=== PATIENT | female | born 1965 | race Two or more races ===

== ENCOUNTER → 2025-08-04 | Outpatient (CLI) | payer BC, SELFPAY ==
--- NOTE | 2025-08-04 09:30 | XR_ITS ---
Examination: Screening digital mammography, bilateral Computer aided detection 3-D breast Tomosynthesis, bilateral Date and time of exam: August 04, 2025, 0841 hours Indication: Screening Technique: Nonmagnified MLO, CC views of the breasts to been obtained, reconstructed from 3-D Tomosynthesis images. R2 computer aided detection program utilized for evaluation of suspicious masses and/or abnormal calcifications. 3-D Tomosynthesis images obtained. Findings: Scattered areas of fibroglandular density. Benign calcifications No suspicious masses Impression: BI-RADS category II: Benign Findings. Recommend 1 year follow-up mammogram.
== END | disposition home or self-care (01) ==
LOC: CDIM 08:28
PROVIDERS: PCP Specialist; Referring Provider Family Medicine; Visit Provider Family Medicine
DX: Z12.31 Encounter for screening mammogram for malignant neoplasm of breast (principal); R92.323 Mammographic fibroglandular density, bilateral breasts; R92.1 Mammographic calcification found on diagnostic imaging of breast
CPT/HCPCS: 77063; 77067

== ENCOUNTER → 2025-08-28 | Outpatient (CLI) | payer BC, SELFPAY ==
--- NOTE | 2025-08-28 12:00 | XR_ITS ---
EXAMINATION: Thyroid sonography TECHNIQUE: Grayscale sonographic images thyroid close Date and time: August 28, 2025, 12:10 p.m. INDICATIONS: History of left thyroidectomy June 28, 2024, right neck pain 1 month, thyroid sonogram December 16, 2017 midpole right thyroid nodule 13 mm lower pole right thyroid nodule 19 mm FINDINGS: Right thyroid 4.6 cm Upper pole nodule 11 x 8 mm Mid: Nodule 8 x 7 mm Lower pole nodule with vascularity 19 x 20 mm Isthmus nodule 21 x 19 mm Left thyroid 4.7 cm Mid: Nodule 7 x 8 mm Lower pole nodule 11 x 8 mm IMPRESSION: Multiple thyroid nodules as above Recommend ultrasound-guided fine-needle aspiration of the lower pole right thyroid nodule and isthmus nodule
== END | disposition home or self-care (01) ==
PROVIDERS: PCP Family Medicine; Referring Provider Family Medicine; Visit Provider Family Medicine
DX: E04.2 Nontoxic multinodular goiter (principal)
CPT/HCPCS: 76536

== ENCOUNTER → 2025-10-16 | Outpatient (CLI) | payer BC, SELFPAY ==
[2025-10-13 15:30] LABS: Basophils # (Auto) 0.0 Thou/mm3 (0.0-0.2); Basophils % (Auto) 1 % (0-2.5); Eosinophils # (Auto) 0.2 Thou/mm3 (0.0-0.5); Eosinophils % (Auto) 4 % (0-10); Hematocrit 40.6 % (36.0-46.0); Hemoglobin 13.4 g/dL (12.0-16.0); Immature Granulocytes Auto 0.01 Thou/mm3 (0.00-0.00); Lymphocytes # (Auto) 1.7 Thou/mm3 (1.0-4.8); Lymphocytes % (Auto) 33 % (10-50); Mean Corpuscular HGB Conc 33.0 g/dl (31.0-37.0); Mean Corpuscular Hemoglobin 26.9 pg (25.0-35.0); Mean Corpuscular Volume 81 fL (80-100); Monocytes # (Auto) 0.3 Thou/mm3 (0.0-0.8); Monocytes % (Auto) 6 % (0-12); Neutrophils # (Auto) 3.0 Thou/mm3 (1.8-7.7); Neutrophils % (Auto) 56 % (37-80); Nucleated Red Blood Cell # 0.00 Thou/mm3 (0.00-0.00); Nucleated Red Blood Cell % 0 /100 WBC (0); Platelet Count 242 Thou/mm3 (140-440); RDW Standard Deviation 39.4 fL (36.4-46.3); Red Blood Count 4.99 Miln/mm3 (4.00-5.20); White Blood Count 5.3 Thou/mm3 (3.6-11.0)
[2025-10-13 15:51] LABS: INR 0.9 (0.9-1.3); Partial Thromboplastin Time 25.2 Seconds (22.0-36.0); Prothrombin Time 10.0 Seconds (9.0-12.2)
--- NOTE | 2025-10-16 10:00 | XR_ITS ---
Exam: Ultrasound-guided left thyroid biopsy. Date and time: 10/16/2025, 10:01 a.m. Indication: Thyroid nodule Technique: After a discussion of risks and benefits informed written consent was obtained. A timeout was completed verifying correct patient, procedure, site, positioning. The patient was placed in the supine position on the exam table. Preliminary ultrasound examination demonstrated a heterogeneous low density nodule in the left thyroid lobe. This was targeted for fine-needle aspiration. The overlying skin was cleaned and draped in normal sterile surgical fashion. 10 cc of 1% lidocaine was used for local anesthesia. Using ultrasound guidance a 25-gauge needle was sequentially advanced into the targeted mass. Multiple aspirates were obtained and placed in solution and sent to laboratory for analysis. The needle was withdrawn and hemostasis was achieved. The access site was covered with a sterile dressing. There were no immediate complications. IMPRESSION: Successful left thyroid nodule fine needle aspiration as above.
--- NOTE | 2025-10-16 10:00 | XR_ITS ---
Exam: Ultrasound-guided thyroid isthmus biopsy. Date and time: 10/16/2025, 12:41 p.m. Indication: Thyroid isthmus nodule Technique: After a discussion of risks and benefits informed written consent was obtained. A timeout was completed verifying correct patient, procedure, site, positioning. The patient was placed in the supine position on the exam table. Preliminary ultrasound examination demonstrated a heterogeneous low density nodule in the thyroid isthmus. This was targeted for fine-needle aspiration. The overlying skin was cleaned and draped in normal sterile surgical fashion. 10 cc of 1% lidocaine was used for local anesthesia. Using ultrasound guidance a 25-gauge needle was sequentially advanced into the targeted mass. Multiple aspirates were obtained and placed in solution and sent to laboratory for analysis. The needle was withdrawn and hemostasis was achieved. The access site was covered with a sterile dressing. There were no immediate complications. IMPRESSION: Successful thyroid isthmus nodule fine needle aspiration as above.
== END | disposition home or self-care (01) ==
PROVIDERS: Radiology Diagnostic Radiology; PCP Family Medicine; Referring Provider Family Medicine; Visit Provider Family Medicine
DX: E04.1 Nontoxic single thyroid nodule (principal)
CPT/HCPCS: 10005; 36415; 85025; 85610; 85730